=== PATIENT | female | born 1955 | race Caucasian/White ===

== ENCOUNTER 2017-07-19 16:30 | Emergency (ER) | payer BC, OTHER ==
[2017-07-19 17:05] VITALS: BP 115/75
--- NOTE | 2017-07-19 17:21 | UC ---
Throat Pain/Nasal Ruben HPI - HPI Summary HPI Summary: 61 yo female with sever sinus pressure and pain x 1 week nasal congestion post nasal drip upper teeth and gums sensitive usually takes a zpak with one refill for sinusitis allergies to PCN and tetracyclines - History of Current Complaint Chief Complaint: UCGeneralIllness Stated Complaint: SINUSES Time Seen by Provider: 07/19/17 17:13 Hx Obtained From: Patient Hx Last Menstrual Period: 2006 Onset/Duration: Gradual Onset, Lasting Weeks - 1 Severity: Moderate Pain Intensity: 6 Pain Scale Used: 0-10 Numeric Cough: None Associated Signs & Symptoms: Positive: Sinus Discomfort, Nasal Discharge - Epiglottits Risk Factors Epiglottis Risk Factors: Negative - Allergies/Home Medications Allergies/Adverse Reactions: Allergies Allergy/AdvReac Type Severity Reaction Status Date / Time Fentanyl Allergy Itching Verified 07/19/17 16:57 Hydrocodone Allergy Itching Verified 07/19/17 16:57 Naproxen Allergy Hives Verified 07/19/17 16:57 NSAIDs Allergy See Comment Verified 07/19/17 16:57 Penicillins Allergy Hives Verified 07/19/17 16:57 Tetracycline Allergy Hives Verified 07/19/17 16:57 Home Medications: Home Medications Diclofenac 1% GEL (NF) [Voltaren 1% GEL (NF)] 1 applic WEEKLY PRN 07/19/17 [ History Confirmed 07/19/17] Fexofenadine (NF) [Nohelia (NF)] 1 tab DAILY 07/19/17 [History Confirmed ] PMH/Surg Hx/FS Hx/Imm Hx Previously Healthy: Yes Respiratory History: Asthma - Surgical History Surgical History: Yes Surgery Procedure, Year, and Place: tonsilectomy, bariatric 06/2015. laproscopy for endometriosis. foot surgery. both ankle- pin and plates. hysterectomy 2004. Gastric bypass-06/2015. right shoulder. right knee - Family History Known Family History: Positive: None, Unknown - Social History Alcohol Use: None Substance Use Type: None, Prescribed Substance Use Comment - Amount & Last Used: oxycodone Smoking Status (MU): Former Smoker Type: Cigarettes Amount Used/How Often: 1-2 cigarettes daily Have You Smoked in the Last Year: No When Did the Patient Quit Smoking/Using Tobacco: 06/2015 Household Exposure Type: Cigarettes - Immunization History Most Recent Influenza Vaccination: 2017 Review of Systems Constitutional: Negative Skin: Negative Eyes: Negative ENT: Dental Pain, Sore Throat, Nasal Discharge, Sinus Congestion, Sinus Pain/ Tenderness Respiratory: Negative Cardiovascular: Negative Gastrointestinal: Negative Genitourinary: Negative Motor: Negative Neurovascular: Negative Musculoskeletal: Negative Neurological: Negative Psychological: Negative Is Patient Immunocompromised?: No All Other Systems Reviewed And Are Negative: Yes Physical Exam Triage Information Reviewed: Yes Appearance: Well-Appearing, No Pain Distress, Well-Nourished Vital Signs: Initial Vital Signs Temp 97.5 F 07/19/17 17:02 Pulse 66 07/19/17 17:02 Resp 16 07/19/17 17:02 BP 115/75 07/19/17 17:02 Pulse Ox 100 07/19/17 17:02 Eyes: Positive: Conjunctiva Clear ENT: Positive: Hearing grossly normal, Nasal congestion, Nasal drainage, TMs normal, Other: - bilat max sinus tenderness. Negative: Tonsillar swelling, Tonsillar exudate, Trismus, Muffled/hoarse voice Neck: Positive: Supple, Nontender, No Lymphadenopathy Respiratory: Positive: Lungs clear, Normal breath sounds, No respiratory distress Cardiovascular: Positive: RRR, Murmur:Sys:Grade _?_/ - 3/6 ALINA Musculoskeletal: Positive: ROM Intact, No Edema Neurological: Positive: Alert Psychological Exam: Normal Skin Exam: Normal Throat Pain/Nasal Course/Dx - Differential Dx/Diagnosis Provider Diagnoses: acute sinusitis. heart murmur Discharge - Discharge Plan Condition: Stable Disposition: HOME Prescriptions: Clarithromycin TAB* [Biaxin 500 MG TAB*] 500 mg PO BID #28 tab Patient Education Materials: Sinusitis (ED) Referrals: Jamie TESFAYE,Vega Diane [Primary Care Provider] - If Needed Additional Instructions: continue flonase use your saline nasal spray twice daily I heard a heart murmur today If it has been awhile since you had an echo I suggest you get re evaluated
== END 2017-07-19 17:29 | disposition home or self-care (01) ==
LOC: UCCORT 16:30
DX: J01.90 Acute sinusitis, unspecified (principal); R01.1 Cardiac murmur, unspecified; Z88.8 Allergy status to other drugs, medicaments and biological substances; Z88.6 Allergy status to analgesic agent; Z87.891 Personal history of nicotine dependence
CPT/HCPCS: 99212; G0463